=== PATIENT | male | born 1965 | race African-American/Black ===

== ENCOUNTER 2020-01-18 11:31 | Emergency (ER) | payer OTHER ==
[~2020-01-18] VITALS: Ht 175.3 cm; Wt 86.4 kg
[~2020-01-18 11:31] MED LIST: ASPI81TA39 PO; LISI-660 PO; METF-445 PO; PARO10TA89 PO
[2020-01-18] MEDS ORDERED: ACETAMINOPHEN 500 MG TABLET PO ONE (12:15)
[2020-01-18] MEDS ORDERED: IBUPROFEN 600 MG TABLET PO ONE (12:15)
[2020-01-18 13:13] LABS: APPEARANCE,URINE CLEAR (CLEAR); BILIRUBIN,URINE NEGATIVE (NEGATIVE); GLUCOSE, URINE (UA) NEGATIVE (NEGATIVE); KETONES,URINE NEGATIVE (NEGATIVE); LEUKOCYTE ESTERASE ,URINE NEGATIVE (NEGATIVE); NITRATE,URINE NEGATIVE (NEGATIVE); OCCULT BLOOD,URINE NEGATIVE (NEGATIVE); PH,URINE 6.5 (5.0-8.0); PROTEIN,URINE NEGATIVE (NEGATIVE)
[2020-01-18 13:28] LABS: BACTERIA,URINE None Seen /HPF (None Seen); RBC,URINE None Seen /HPF (0-2); WBC,URINE None Seen /HPF (0-5)
[2020-01-18 13:33] VITALS: BP 119/81
[2020-01-18 18:16] LABS: GLUCOSE,POINT OF CARE 141 MG/DL (70-110)
== END 2020-01-18 14:02 | disposition home or self-care (01) ==
LOC: EMS 11:37
DX: S00.83XA Contusion of other part of head, initial encounter (principal); J32.0 Chronic maxillary sinusitis; E11.9 Type 2 diabetes mellitus without complications; F17.210 Nicotine dependence, cigarettes, uncomplicated; Z79.84 Long term (current) use of oral hypoglycemic drugs; Z79.899 Other long term (current) drug therapy; Y04.2XXA Assault by strike against or bumped into by another person, initial encounter; Y93.89 Activity, other specified; Y92.89 Other specified places as the place of occurrence of the external cause; Y99.8 Other external cause status
CPT/HCPCS: 70450; 70486